=== PATIENT | male | born 1990 | race Caucasian/White ===

== ENCOUNTER 2021-03-22 11:24 | Inpatient (IN) | payer OTHER ==
[2021-03-22 12:21] VITALS: BMI 40.0
[2021-03-22] MEDS ORDERED: MAGNESIUM CITRATE 300 ML BOTTLE PO PRN (15:26)
[2021-03-22] MEDS ORDERED: MAG HYDROX/AL HYDROX/SIMETH 30 ML UNIT-DOSE CUP PO PRN (15:26)
[2021-03-22] MEDS ORDERED: MAGNESIUM HYDROX 2400MG/30ML ORAL SUSPENSION 30 ML CUP PO PRN (15:26)
[2021-03-22] MEDS ORDERED: BISMUTH SUBSALICYLATE 524 MG/30 ML PO PRN (15:26)
[2021-03-22] MEDS ORDERED: ACETAMINOPHEN 325 MG TABLET (FP) PO PRN ×2 (15:26)
[2021-03-22] MEDS ORDERED: METHOCARBAMOL 500 MG TABLET PO PRN (15:26)
[2021-03-22] MEDS ORDERED: ONDANSETRON *ODT* 4 MG TABLET SL PRN (15:26)
[2021-03-22] MEDS ORDERED: IBUPROFEN 400 MG TABLET (FP) PO PRN (15:26)
[2021-03-22] MEDS ORDERED: MENTHOL/PHENOL 1 EACH UD MM PRN (15:26)
[2021-03-22] MEDS ORDERED: methaDONE HCL 10 MG TABLET (FOR DETOX USE ONLY) PO ONE (17:30)
[2021-03-22] MEDS: hydrOXYzine PAMOATE 25 MG CAPSULE (FP) PO SCH ×2 (17:47→22:16)
[2021-03-22] MEDS: NICOTINE 10 MG CARTRIDGE (INHALER) IH PRN (21:06)
[2021-03-22] MEDS: NICOTINE POLACRILEX 2 MG GUM BUC PRN (21:06)
[2021-03-22] MEDS: cloNIDine HCL 0.1 MG TABLET PO PRN (22:16)
[2021-03-22] MEDS: THIAMINE HCL 100 MG TABLET (FP) PO SCH (22:16)
[2021-03-22] MEDS: MELATONIN 5 MG TABLETS PO SCH (22:17)
[2021-03-23] MEDS: hydrOXYzine PAMOATE 25 MG CAPSULE (FP) PO SCH ×5 (06:28→22:21)
[2021-03-23] MEDS ORDERED: methaDONE HCL 10 MG TABLET (FOR DETOX USE ONLY) ONE (09:46)
[2021-03-23 10:27] LABS: CALCIUM 8.4 mg/dL (8.5-10.1)
[2021-03-23 10:28] LABS: BLOOD UREA NITROGEN 12.3 mg/dL (7-18)
[2021-03-23 10:30] LABS: HEMATOCRIT 38.6 % (35.4-49); HEMOGLOBIN 12.7 GM/dL (11.7-16.9); MCH 28.2 pg (25.7-33.7); MCHC 32.8 g/dl (32.0-35.9); MEAN CELL VOLUME 85.9 fl (80-96); PLATELET COUNT 188 10^3/uL (134-434); RBC 4.49 M/mm3 (4.00-5.60); RDW 13.2 % (11.9-15.9); WHITE BLOOD COUNT 4.3 K/mm3 (4.0-10.0)
[2021-03-23 10:31] LABS: CREATININE 0.7 mg/dL (0.55-1.3)
[2021-03-23 10:33] LABS: BILIRUBIN,TOTAL 0.4 mg/dL (0.2-1); TOT PROT 6.4 g/dl (6.4-8.2)
[2021-03-23] MEDS: PRENATAL VITAMINS W/ FOLIC ACID TABLET (FP) PO SCH (11:06)
[2021-03-23] MEDS: NICOTINE 21 MG/24 HOURS TOPICAL PATCH TD SCH (11:07)
[2021-03-23] MEDS: NICOTINE POLACRILEX 2 MG GUM BUC PRN ×2 (11:07→22:44)
[2021-03-23] MEDS: NICOTINE 10 MG CARTRIDGE (INHALER) IH PRN ×2 (11:08→22:43)
[2021-03-23] MEDS: cloNIDine HCL 0.1 MG TABLET PO PRN (17:25)
[2021-03-23] MEDS: THIAMINE HCL 100 MG TABLET (FP) PO SCH (22:20)
[2021-03-23] MEDS: MELATONIN 5 MG TABLETS PO SCH (22:21)
[2021-03-24] MEDS: hydrOXYzine PAMOATE 25 MG CAPSULE (FP) PO SCH ×5 (06:06→22:18)
[2021-03-24] MEDS ORDERED: methaDONE HCL 10 MG TABLET (FOR DETOX USE ONLY) PO ONE (10:00)
[2021-03-24] MEDS: NICOTINE 21 MG/24 HOURS TOPICAL PATCH TD SCH (10:34)
[2021-03-24] MEDS: PRENATAL VITAMINS W/ FOLIC ACID TABLET (FP) PO SCH (10:34)
[2021-03-24] MEDS: NICOTINE 10 MG CARTRIDGE (INHALER) IH PRN ×3 (10:35→20:34)
[2021-03-24] MEDS: NICOTINE POLACRILEX 2 MG GUM BUC PRN ×3 (10:38→20:34)
[2021-03-24] MEDS: GABAPENTIN 300 MG CAPSULE PO SCH (22:18)
[2021-03-24] MEDS: MELATONIN 5 MG TABLETS PO SCH (22:18)
[2021-03-24] MEDS: THIAMINE HCL 100 MG TABLET (FP) PO SCH (22:18)
[2021-03-24] MEDS: busPIRone HCL 10 MG TABLET (FP) PO SCH (22:18)
[2021-03-25] MEDS: NICOTINE 10 MG CARTRIDGE (INHALER) IH PRN ×5 (00:13→22:34)
[2021-03-25] MEDS: NICOTINE POLACRILEX 2 MG GUM BUC PRN ×6 (00:46→22:33)
[2021-03-25] MEDS: GABAPENTIN 300 MG CAPSULE PO SCH ×3 (06:01→22:16)
[2021-03-25] MEDS: hydrOXYzine PAMOATE 25 MG CAPSULE (FP) PO SCH ×5 (06:01→22:17)
[2021-03-25] MEDS: busPIRone HCL 10 MG TABLET (FP) PO SCH ×3 (06:01→22:16)
[2021-03-25] MEDS ORDERED: methaDONE HCL 10 MG TABLET (FOR DETOX USE ONLY) ONE (09:22)
[2021-03-25] MEDS: PRENATAL VITAMINS W/ FOLIC ACID TABLET (FP) PO SCH (10:04)
[2021-03-25] MEDS: NICOTINE 21 MG/24 HOURS TOPICAL PATCH TD SCH (10:05)
[2021-03-25 18:19] LABS: URINE APPEARANCE CLEAR; URINE BILIRUBIN NEGATIVE (NEGATIVE); URINE COLOR YELLOW; URINE GLUCOSE (UA) NEGATIVE (NEGATIVE); URINE KETONE NEGATIVE (NEGATIVE); URINE LEUK ESTERASE NEGATIVE (NEGATIVE); URINE NITRITE NEGATIVE (NEGATIVE); URINE PROTEIN NEGATIVE (NEGATIVE); URINE UROBILINOGEN 0.2 mg/dL (0.2-1.0)
[2021-03-25] MEDS: THIAMINE HCL 100 MG TABLET (FP) PO SCH (22:15)
[2021-03-25] MEDS: MELATONIN 5 MG TABLETS PO SCH (22:18)
[2021-03-26] MEDS: busPIRone HCL 10 MG TABLET (FP) PO SCH ×3 (06:35→22:10)
[2021-03-26] MEDS: GABAPENTIN 300 MG CAPSULE PO SCH ×3 (06:35→22:05)
[2021-03-26] MEDS: hydrOXYzine PAMOATE 25 MG CAPSULE (FP) PO SCH ×5 (06:35→22:10)
[2021-03-26] MEDS ORDERED: methaDONE HCL 10 MG TABLET (FOR DETOX USE ONLY) PO ONE (10:00)
[2021-03-26] MEDS: PRENATAL VITAMINS W/ FOLIC ACID TABLET (FP) PO SCH (10:43)
[2021-03-26] MEDS: NICOTINE 21 MG/24 HOURS TOPICAL PATCH TD SCH (10:44)
[2021-03-26] MEDS: NICOTINE 10 MG CARTRIDGE (INHALER) IH PRN ×3 (11:35→21:03)
[2021-03-26] MEDS: NICOTINE POLACRILEX 2 MG GUM BUC PRN ×4 (11:36→22:13)
[2021-03-26] MEDS: MELATONIN 5 MG TABLETS PO SCH (22:10)
[2021-03-26] MEDS: THIAMINE HCL 100 MG TABLET (FP) PO SCH (22:10)
[2021-03-27] MEDS: NICOTINE 10 MG CARTRIDGE (INHALER) IH PRN ×2 (01:02→07:34)
[2021-03-27] MEDS: NICOTINE POLACRILEX 2 MG GUM BUC PRN (01:03)
[2021-03-27] MEDS: hydrOXYzine PAMOATE 25 MG CAPSULE (FP) PO SCH ×2 (06:32→10:47)
[2021-03-27] MEDS: GABAPENTIN 300 MG CAPSULE PO SCH (06:32)
[2021-03-27] MEDS: busPIRone HCL 10 MG TABLET (FP) PO SCH (06:32)
[2021-03-27 09:42] VITALS: BP 111/75; PULSE 64; TEMP 96.8
[2021-03-27] MEDS: PRENATAL VITAMINS W/ FOLIC ACID TABLET (FP) PO SCH (10:47)
[2021-03-27] MEDS: NICOTINE 21 MG/24 HOURS TOPICAL PATCH TD SCH (10:47)
== END 2021-03-27 11:47 | disposition home or self-care (01) | DRG 773 ==
LOC: YASAS 11:24 → Y6N 16:50
PROVIDERS: ADMIT Allergy & Immunology; ATTEND Allergy & Immunology
PROC: HZ2ZZZZ Detoxification Services for Substance Abuse Treatment (ICD-10-PCS; principal; 2021-03-22)
DX: F11.23 Opioid dependence with withdrawal (principal); F17.210 Nicotine dependence, cigarettes, uncomplicated; F41.9 Anxiety disorder, unspecified; F43.10 Post-traumatic stress disorder, unspecified; F19.24 Other psychoactive substance dependence with psychoactive substance-induced mood disorder; F19.280 Other psychoactive substance dependence with psychoactive substance-induced anxiety disorder; Z56.0 Unemployment, unspecified
CPT/HCPCS: 36415; 80053; 81003; 85027; 86780; 93005; 93010; C9803; J0735; U0003; U0005

== ENCOUNTER 2021-07-17 16:17 | Inpatient (IN) | payer OTHER ==
[2021-07-17 17:48] VITALS: BMI 45.8
[2021-07-17] MEDS ORDERED: ACETAMINOPHEN 325 MG TABLET (FP) PO PRN ×2 (19:30)
[2021-07-17] MEDS ORDERED: methaDONE HCL 10 MG TABLET (FOR DETOX USE ONLY) PO ONE ×2 (19:30→23:45)
[2021-07-17] MEDS ORDERED: MAGNESIUM HYDROX 2400MG/30ML ORAL SUSPENSION 30 ML CUP PO PRN (19:30)
[2021-07-17] MEDS ORDERED: PROCHLORPERAZINE MALEATE 5 MG TABLET PO PRN (19:30)
[2021-07-17] MEDS ORDERED: guaiFENesin 200 MG/10 ML 10 ML UNIT-DOSE CUPS PO PRN (19:30)
[2021-07-17] MEDS ORDERED: P-EPHED 60MG/TRIPROLIDI 2.5MG TABLET PO PRN (19:30)
[2021-07-17] MEDS ORDERED: MAGNESIUM CITRATE 300 ML BOTTLE PO PRN (19:30)
[2021-07-17] MEDS ORDERED: BISMUTH SUBSALICYLATE 524 MG/30 ML PO PRN (19:30)
[2021-07-17] MEDS ORDERED: clonazePAM 0.5 MG ODT TABLETS SL PRN (19:30)
[2021-07-17] MEDS ORDERED: MAG HYDROX/AL HYDROX/SIMETH 30 ML UNIT-DOSE CUP PO PRN (19:30)
[2021-07-17] MEDS ORDERED: MENTHOL/PHENOL 1 EACH UD MM PRN (19:30)
[2021-07-17] MEDS ORDERED: IBUPROFEN 400 MG TABLET (FP) PO PRN (19:30)
[2021-07-17] MEDS ORDERED: DICYCLOMINE HCL 10 MG CAPSULE PO PRN (19:30)
[2021-07-17] MEDS: THIAMINE HCL 100 MG TABLET (FP) PO SCH (23:42)
[2021-07-17] MEDS: MELATONIN 5 MG TABLETS PO SCH (23:42)
[2021-07-17] MEDS: METHOCARBAMOL 500 MG TABLET PO PRN (23:43)
[2021-07-18] MEDS ORDERED: methaDONE HCL 10 MG TABLET (FOR DETOX USE ONLY) ONE (08:45)
[2021-07-18] MEDS: PRENATAL VITAMINS W/ FOLIC ACID TABLET (FP) PO SCH (10:11)
[2021-07-18] MEDS: NICOTINE POLACRILEX 2 MG GUM BUC PRN ×2 (10:12→22:34)
[2021-07-18] MEDS: NICOTINE 21 MG/24 HOURS TOPICAL PATCH TD SCH (10:12)
[2021-07-18 13:53] LABS: HEMATOCRIT 38.2 % (35.4-49); HEMOGLOBIN 12.2 GM/dL (11.7-16.9); MCH 27.2 pg (25.7-33.7); MCHC 31.9 g/dl (32.0-35.9); MEAN CELL VOLUME 85.1 fl (80-96); MEAN PLT VOLUME 8.4 fl (7.5-11.1); PLATELET COUNT 260 10^3/uL (134-434); RBC 4.49 M/mm3 (4.00-5.60); WHITE BLOOD COUNT 6.1 K/mm3 (4.0-10.0)
[2021-07-18 14:08] LABS: ALBUMIN 3.2 g/dl (3.4-5.0); CALCIUM 9.3 mg/dL (8.5-10.1)
[2021-07-18 14:10] LABS: CREATININE 0.8 mg/dL (0.55-1.3)
[2021-07-18 14:17] LABS: BILIRUBIN,TOTAL 0.4 mg/dL (0.2-1); BLOOD UREA NITROGEN 10.1 mg/dL (7-18); TOT PROT 6.3 g/dl (6.4-8.2)
[2021-07-18 14:47] LABS: HIV INTERPRETATION NEGATIVE (NEGATIVE)
[2021-07-18] MEDS: busPIRone HCL 10 MG TABLET (FP) PO SCH ×2 (15:30→22:32)
[2021-07-18] MEDS: GABAPENTIN 300 MG CAPSULE PO SCH ×2 (15:31→22:33)
[2021-07-18] MEDS: MELATONIN 5 MG TABLETS PO SCH (22:32)
[2021-07-18] MEDS: THIAMINE HCL 100 MG TABLET (FP) PO SCH (22:33)
[2021-07-19] MEDS: GABAPENTIN 300 MG CAPSULE PO SCH ×3 (06:42→22:15)
[2021-07-19] MEDS: busPIRone HCL 10 MG TABLET (FP) PO SCH ×3 (06:42→22:15)
[2021-07-19] MEDS ORDERED: methaDONE HCL 10 MG TABLET (FOR DETOX USE ONLY) PO ONE (10:00)
[2021-07-19] MEDS: METHOCARBAMOL 500 MG TABLET PO PRN (10:51)
[2021-07-19] MEDS: PRENATAL VITAMINS W/ FOLIC ACID TABLET (FP) PO SCH (10:51)
[2021-07-19] MEDS: NICOTINE 21 MG/24 HOURS TOPICAL PATCH TD SCH (10:52)
[2021-07-19] MEDS: THIAMINE HCL 100 MG TABLET (FP) PO SCH (22:15)
[2021-07-19] MEDS: MELATONIN 5 MG TABLETS PO SCH (22:15)
[2021-07-19] MEDS: NICOTINE 10 MG CARTRIDGE (INHALER) IH PRN (22:16)
[2021-07-20] MEDS: NICOTINE 10 MG CARTRIDGE (INHALER) IH PRN ×5 (06:22→21:46)
[2021-07-20] MEDS: GABAPENTIN 300 MG CAPSULE PO SCH ×3 (06:22→21:40)
[2021-07-20] MEDS: busPIRone HCL 10 MG TABLET (FP) PO SCH ×3 (06:22→21:40)
[2021-07-20] MEDS ORDERED: methaDONE HCL 10 MG TABLET (FOR DETOX USE ONLY) ONE (09:42)
[2021-07-20] MEDS: METHOCARBAMOL 500 MG TABLET PO PRN (10:10)
[2021-07-20] MEDS: PRENATAL VITAMINS W/ FOLIC ACID TABLET (FP) PO SCH (10:11)
[2021-07-20] MEDS: NICOTINE 21 MG/24 HOURS TOPICAL PATCH TD SCH (10:12)
[2021-07-20] MEDS: MELATONIN 5 MG TABLETS PO SCH (21:40)
[2021-07-20] MEDS: THIAMINE HCL 100 MG TABLET (FP) PO SCH (21:40)
[2021-07-21] MEDS: GABAPENTIN 300 MG CAPSULE PO SCH ×3 (07:05→22:23)
[2021-07-21] MEDS: busPIRone HCL 10 MG TABLET (FP) PO SCH ×3 (07:05→22:23)
[2021-07-21] MEDS ORDERED: methaDONE HCL 10 MG TABLET (FOR DETOX USE ONLY) PO ONE (10:00)
[2021-07-21] MEDS: cloNIDine HCL 0.1 MG TABLET PO PRN ×2 (10:07→22:23)
[2021-07-21] MEDS: METHOCARBAMOL 500 MG TABLET PO PRN ×2 (10:07→22:23)
[2021-07-21] MEDS: PRENATAL VITAMINS W/ FOLIC ACID TABLET (FP) PO SCH (10:07)
[2021-07-21] MEDS: NICOTINE 21 MG/24 HOURS TOPICAL PATCH TD SCH (10:07)
[2021-07-21] MEDS: NICOTINE 10 MG CARTRIDGE (INHALER) IH PRN ×2 (17:59→22:22)
[2021-07-21] MEDS: MELATONIN 5 MG TABLETS PO SCH (22:23)
[2021-07-21] MEDS: THIAMINE HCL 100 MG TABLET (FP) PO SCH (22:23)
[2021-07-22] MEDS: NICOTINE 10 MG CARTRIDGE (INHALER) IH PRN (03:51)
[2021-07-22] MEDS: cloNIDine HCL 0.1 MG TABLET PO PRN ×2 (03:53→10:09)
[2021-07-22] MEDS: busPIRone HCL 10 MG TABLET (FP) PO SCH (06:49)
[2021-07-22] MEDS: GABAPENTIN 300 MG CAPSULE PO SCH (06:49)
[2021-07-22] MEDS: PRENATAL VITAMINS W/ FOLIC ACID TABLET (FP) PO SCH (10:10)
[2021-07-22] MEDS: NICOTINE 21 MG/24 HOURS TOPICAL PATCH TD SCH (10:10)
[2021-07-22 13:13] VITALS: BP 124/69; PULSE 55; TEMP 97.1
== END 2021-07-22 13:15 | disposition home or self-care (01) | DRG 773 ==
LOC: YASAS 16:17 → Y3N 21:23
PROVIDERS: ADMIT Allergy & Immunology; ATTEND Allergy & Immunology
PROC: HZ2ZZZZ Detoxification Services for Substance Abuse Treatment (ICD-10-PCS; principal; 2021-07-17)
DX: F11.23 Opioid dependence with withdrawal (principal); F10.230 Alcohol dependence with withdrawal, uncomplicated; F17.210 Nicotine dependence, cigarettes, uncomplicated; F19.24 Other psychoactive substance dependence with psychoactive substance-induced mood disorder; F43.10 Post-traumatic stress disorder, unspecified; E66.01 Morbid (severe) obesity due to excess calories; Z68.42 Body mass index [BMI] 45.0-49.9, adult; Z91.19 Patient's noncompliance with other medical treatment and regimen; Z56.0 Unemployment, unspecified; Z59.00 Homelessness unspecified
CPT/HCPCS: 36415; 80053; 85027; 86780; 87389; C9803; J0735; U0003; U0005